=== PATIENT | female | born 1985 | race Caucasian/White ===

== ENCOUNTER → 2019-03-17 08:38 | Outpatient (BNVA) | payer MEDICAID, SELFPAY | PROVIDERS: Family Provider Registered Nurse; Visit Provider Obstetrics & Gynecology | DX: Z34.90 Encounter for supervision of normal pregnancy, unspecified, unspecified trimester (principal) | CPT/HCPCS: 81000; 81003 ==

== ENCOUNTER → 2019-03-31 08:30 | Outpatient (BNVA) | payer MEDICAID, SELFPAY | PROVIDERS: Family Provider Registered Nurse; Visit Provider Obstetrics & Gynecology | DX: Z34.93 Encounter for supervision of normal pregnancy, unspecified, third trimester (principal) | CPT/HCPCS: 81003; 87081 ==

== ENCOUNTER → 2019-04-07 08:10 | Outpatient (BNVA) | payer MEDICAID, SELFPAY | PROVIDERS: Family Provider Registered Nurse; Visit Provider Obstetrics & Gynecology | DX: Z34.93 Encounter for supervision of normal pregnancy, unspecified, third trimester (principal) | CPT/HCPCS: 81003 ==

== ENCOUNTER → 2019-04-14 08:16 | Outpatient (BNVA) | payer MEDICAID, SELFPAY | PROVIDERS: Family Provider Registered Nurse; Visit Provider Obstetrics & Gynecology | DX: Z34.90 Encounter for supervision of normal pregnancy, unspecified, unspecified trimester (principal) | CPT/HCPCS: 81003 ==

== ENCOUNTER → 2019-04-21 08:11 | Outpatient (BNVA) | payer MEDICAID, SELFPAY | PROVIDERS: Family Provider Registered Nurse; Visit Provider Obstetrics & Gynecology | DX: Z34.90 Encounter for supervision of normal pregnancy, unspecified, unspecified trimester (principal) | CPT/HCPCS: 81003 ==

== ENCOUNTER → 2019-04-28 09:46 | Outpatient (BNVA) | payer MEDICAID, SELFPAY | PROVIDERS: Family Provider Registered Nurse; Visit Provider Obstetrics & Gynecology | DX: Z34.90 Encounter for supervision of normal pregnancy, unspecified, unspecified trimester (principal) | CPT/HCPCS: 81003 ==

== ENCOUNTER 2019-05-04 23:08 | Inpatient (IN) | payer MEDICAID, SELFPAY ==
[2019-05-04] VITALS (50 sets, daily range): BP systolic 0–158; BP diastolic 0–98; PULSE 64–102; RESP 18; TEMP 36.7–36.8; BMI 44.6
--- NOTE | 2019-05-04 14:00 | PM.OBGYHP ---
Providers/Chief Complaint Admitting Physician: Lucas Boykin Primary SCALING MACHINE OPERATOR: Will Finney Chief Complaint: ob triage HPI SCALING MACHINE OPERATOR History of Present Illness Laura Ross is a 34 year old female -0-1-0 with LMP of 07/06/2018 EDC of 04/26/2019 based on early ultrasound. Last seen in the office on 04/28/[address] Finney. Arranges were made for patient to be admitted today for induction of labor for pending postdates. Patient presents to labor and delivery today she states she has not had uterine contractions she has good movement denies headaches visual changes right upper quadrant and midepigastric pain. This has been complicated by hypertension in third trimester, however from review of chart patient has had some borderline elevations of blood pressure in . 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 Also has a history of chlamydia in first trimester history of tobacco use and second trimester family history of Down syndrome and obesity affecting (current weight 300 pounds) Blood type O+ [employer] screens negative rubella protected serology testing negative Pap smear negative and up-to-date 1 hour GTT 64NIPT low risk cystic fibrosis screen negative at 28 weeks 1 hour GTT was 122 Present Details : 2 Para: 0 Review of Systems Const: Denies: fever, chills or body aches Eyes: Denies: change in vision Card: Denies: chest pain, palpitations, irregular heart rhythm or swelling of feet/ankles Resp: Denies: shortness of breath, productive cough or wheezing GI: Denies: abdominal pain, nausea or vomiting : Denies: difficulty urinating, painful urination, urinary urgency, vaginal odor or vaginal discharge Musc: Denies: back pain, extremity pain or extremity swelling Skin/Breast: Denies: rash Neuro: Denies: headache, numbness in extremities or weakness in extremities Psych: Denies: anxiety or depression Endo: Denies: excessive urination, excessive thirst, cold intolerance or heat intolerance Abiodun/Lymph: Denies: easy bruising or easy bleeding All/Imm: Denies: hives Medications/Allergies Allergies Allergy/AdvReac Type Severity Reaction Status Date / Time No Known Allergies Allergy Verified 03/03/19 08:11 [facility] SCALING MACHINE OPERATOR Social History (Updated 05/04/19 @ 14:10 by Lucas Boykin DO) Smoking and tobacco status: former smoker Quit status (tobacco): has quit using tobacco Second hand smoke exposure: No Alcohol intake: unknown Desire information about alcohol rehabilitation?: No Counseling given: No Substance/Drug Use: unknown Desire information about substance/drug rehabilitation?: No Counseling given: No Adopted: No Caregiver/support person: No Lives independently: Yes Household members: family service: No Current occupational exposures/hazards: No History of recent travel: No Current gender identity: Female Special anshu needs: No Agree to transfusion: Yes Vitals/I&O/Wt Last Vital Signs Pulse 92 05/04/19 13:58 BP 151/77 05/04/19 13:58 Weight last 48 hrs Weight 145.15 kg Physical Exam Narrative: EXAM NARRATIVE: Alert and oriented no acute distress obese gravid white female HEENT grossly normal Neck supple nontender nodes or masses Lungs clear to auscultation Heart regular sinus rhythm Abdomen obese soft nontender gravid baby is vertex per L&D RN ultrasound and confirmed by Asad's Pelvic exam: Deferred by me cervix described as being long/1 cm by nurse Extremities intact no definite edema Neurologic exam patella DTR 02/22 A&P Assessment and plan (1) with 41 completed weeks gestation: This lady is admitted at 41 weeks gestation for induction of labor. Initial blood pressure today was 157/78 she has been followed closely for increased blood pressure and third trimester her home blood pressures have been in the 130s over 70s. She denies any signs symptoms of preeclampsia at this time will check her CBC with platelets CMP and urine protein creatinine ratio will observe closely for development of preeclampsia and labor. She is a group B strep carrier will be given prophylactic ampicillin per protocol. Have discussed meaning of group B strep and risks to . Status: Acute Code(s): Z3A.41 - 41 weeks gestation of Attestations Medical Necessity Statement*: Labor impending delivery Time Spent in Patient Care: 16 - 35 minutes Greater than 50% of [id number] time spent with counseling patient on labor and group B strep status Procedures Consent Consent for Procedure: Consent obtained from patient Coding Level of Care Code Established Pt Acute Taximeter Repairer for g Fwd Patient Type Established History Expanded Problem Focused Exam Expanded Problem Focused Medical Decision Making Moderate Complexity Diagnoses with 41 completed weeks gestation Z3A.41 Time Spent (min) 30 Comment Greater than 50% [id number]-prkl time spent in counseling labor induction and group B strep status.
[2019-05-04 14:43] LABS: Add Urine Microscopic? NO
[2019-05-04] MEDS: ampicillin 2,000 MG in sodium chloride 0.9% (plus) 50 ML 100 MG IV ×2 (14:49→20:38)
[2019-05-04] MEDS: dextrose 5%-lactated ringers 1,000 ML 125 ML IV (14:50)
[2019-05-04 14:55] LABS: Basophils % 0.3 %; Eosinophils # 0.1 10^3/uL (0.0-0.8); Eosinophils % 1.1 %; Hematocrit 36.5 % (37.0-47.0); Hemoglobin 11.7 g/dL (11.5-15.3); Lymphocytes # 2.5 10^3/uL (0.8-4.8); Lymphocytes % 21.6 %; Mean Corpuscular HGB Conc 32.1 g/dL (30.0-36.0); Mean Corpuscular Hemoglobin 29.8 pg (28.0-34.0); Mean Corpuscular Volume 92.9 fL (81-99); Mean Platelet Volume 9.9 fL (7.4-10.4); Monocytes # 0.6 10^3/uL (0.2-0.9); Monocytes % 5.3 %; Neutrophils # 8.1 10^3/uL (1.8-7.7); Neutrophils % 71.3 %; Nucleated Red Blood Cells % 0 %; Platelet Count 324 10^3/cmm (130-400); Red Blood Count 3.93 10^6/uL (4.1-5.3); Red Cell Distribution Width 12.7 % (12.1-15.1); White Blood Count 11.4 10^3/uL (4.0-10.0)
[2019-05-04 14:57] LABS: Bilirubin Urine Neg (NEGATIVE); Blood Urine Neg (Negative); Glucose Urine UA Norm (Normal); Ketones Urine 1+ (Negative); Leukocyte Esterase Urine Negative (Negative); Nitrate Urine Negative (Negative); Protein Urine Neg (Negative); Urine Appearance Clear (CLEAR); Urine Color Dark Yellow (Yellow); Urobilinogen Urine 1 mg/dL (Negative); pH Urine 6 (5-7)
[2019-05-04] MEDS: miSOPROStol 100 mcg tablet 25 MCG VAGINAL ×2 (15:08→19:13)
[2019-05-04 15:17] LABS: Urine Creatinine 282 mg/dL (28-217)
[2019-05-04 15:18] LABS: Alanine Aminotransferase 17 U/L (0-33); Albumin Level 3.1 g/dL (3.5-5.2); Alkaline Phosphatase 117 IU/L (35-105); Aspartate Amino Transferase 14 U/L (0-32); Blood Urea Nitrogen 13 mg/dL (6-20); Calcium 9.2 mg/dL (8.5-10.5); Carbon Dioxide 26 mmol/L (22-29); Chloride 104 mmol/L (98-107); Globulin 3.3 g/dL (1.3-4.6); Glucose 115 mg/dL (65-115); Osmolality Calculated 283 mOsm/kg (285-295); Sodium 138 mmol/L (136-145); Total Bilirubin 0.2 mg/dL (0.15-1.2); Total Protein 6.4 g/dL (6.6-8.7); Uric Acid 5.2 mg/dL (2.4-5.7)
[2019-05-04 15:26] LABS: UPRO/UCREAT Ratio 0.08 mg/mg CR; Urine Protein Random 22 mg/dL
[2019-05-05] VITALS (148 sets, daily range): BP systolic 0–147; BP diastolic 0–82; PULSE 52–83; RESP 17–18; TEMP 36.6–36.9
[2019-05-05] MEDS: ampicillin 2,000 MG in sodium chloride 0.9% (plus) 50 ML 100 MG IV ×4 (02:52→21:05)
[2019-05-05] MEDS: miSOPROStol 100 mcg tablet 25 MCG VAGINAL (06:16)
[2019-05-05] MEDS: oxytocin 30 UNIT/500 ML BAG IV (10:20)
[2019-05-05] MEDS: acetaminophen 325 mg Tablet 650 MG PO (13:06)
[2019-05-05] MEDS: dextrose 5%-lactated ringers 1,000 ML 125 ML IV (15:51)
--- NOTE | 2019-05-05 22:24 | P.PN_ITS ---
Subjective Subjective: Interval history: Ms. Ross states that she is doing good. She feels a little better after having had something to eat and drink. Her pain is well controlled with the epidural. She has questions about plan of care. She denies any preeclamptic symptoms. Vitals/I&O/Wt Last Vital Signs Temp 97.9 F 05/05/19 20:00 Pulse 60 05/05/19 20:55 Resp 18 05/05/19 20:00 BP 131/77 05/05/19 20:55 05/05/19 05/05/19 05/05/19 06:59 14:59 22:59 Intake Total 112.5 / 942.750 156.167 / 156.167 834.583 / 990.750 Balance 112.5 / 942.750 156.167 / 156.167 834.583 / 990.750 Weight last 48 hrs Weight 320 lb Physical Exam Narrative: EXAM NARRATIVE: Gen.: No acute distress Heart: S1-S2 heard, regular rate and rhythm Lungs: Clear to auscultation bilaterally Abdomen: Soft, fundus firm below umbilicus, gravid Cervix: 1, 50, -4 Legs: No calf tenderness, 1+ pitting pedal edema. EFM: 135, moderate variability, accelerations, no decelerations toco: irregular contractions Data : 05/07/19 21:31 05/04/19 14:30 A&P Additional A&P Information 34-year-old 1 para 0 at term undergoing induction of labor -GBS positive-continue antibiotics -Hypertension-has not needed any antihypertensive medication and blood pressures largely within normal limits -Epidural has been given for pain control -She is not in labor at this time-continue induction with Pitocin at this time. Too high for AROM. -Discussed will do 12 hours of Pitocin at the end of the time do another break and based on her cervical exam will reassess if she needs to have another course of Cytotec or Pitocin. All her questions were answered to her satisfaction and she agrees with the current plan of care. Attestations Medical Necessity Statement*: Patient is undergoing labor and will likely need to stay for a couple more days as she has not yet delivered Coding Level of Care Code Acute Granulating Blender for Yulisa Ca
[2019-05-06] VITALS (74 sets, daily range): BP systolic 0–160; BP diastolic 0–91; PULSE 52–90; RESP 16–20; TEMP 36.7–36.8; O2SAT 88–98
[2019-05-06] MEDS: ampicillin 2,000 MG in sodium chloride 0.9% (plus) 50 ML 100 MG IV ×3 (02:47→17:10)
[2019-05-06] MEDS: dextrose 5%-lactated ringers 1,000 ML 125 ML IV (06:23)
--- NOTE | 2019-05-06 23:33 | P.ANES_ITS ---
Anesthesia Procedures Procedure/Date: 05/06/19 Epidural: Time Out Performed: Yes Consents Signed: Procedure Consent Consent: from patient, risks and benefits reviewed and patient agrees to proceed Lumbar Level: L3-L4 Epidural position: sitting Epidural procedure: sterile prep of area, 1% lidocaine to numb the area (5), 18 g needle, negative f or paresthesia passed, neg for paresthesia, test dose given, 1.5% xylocaine 1:200k epi (5), 0.2% Ropivacaine bolus ml (9), placed PCEA (5cc q10min x 3), no systemic response, sterile dressing applied, L.U.D. no apparent complications and 0.2% Ropiavacaine @ mls/hr (13) Additional Comments: called to OB for pt requesting Epidural, paper preop from 04/07 reviewed and no changes. Labs reviewed and pt epidural completed, catheter to 5cm. Before test dose, pt diaphoretic and bp 97/50. waited and rechecked BP before test dose. it had improved to 100s systolic. nausea subsided. test dose negative and taped. FHR payton and pt repositioned per RNs and Dr Finney to bedside. HR increased with o2 and position change. after settling down epidural bolused over 8 min. VSS throughout and Last BP is 144/73.
[2019-05-07] VITALS (73 sets, daily range): BP systolic 0–157; BP diastolic 0–87; PULSE 53–80; RESP 16–18; TEMP 36.4–37; O2SAT 95–100
[2019-05-07] MEDS: ampicillin 2,000 MG in sodium chloride 0.9% (plus) 50 ML 100 MG IV (01:00)
--- NOTE | 2019-05-07 06:39 | PM.PN ---
Subjective Subjective: Interval history: Patient is a 34-year-old white female 2, para 0-0-1-0 with an LMP of 07/06/2018 and an EDC of 04/26/2019 based on 8-week ultrasound, which places her at 41-4/7 weeks gestation today. She had presented to labor and delivery on 05/03, for Cytotec cervical ripening and induction of labor. She initially received a total of 3 doses of Cytotec 25 mcg vaginally and was then started on Pitocin on Sunday. This was carried through the evening and the next morning. However, she made no significant cervical change and Pitocin was stopped on Sunday, 05/05 to allow patient to have a break. Pitocin was restarted late afternoon on Sunday and has been continued through the night. At approximately 1730 on Sunday, 05/05, artificial rupture membranes was performed with clear fluid. She was at most 50% effaced and 3 to 4 cm dilated and a -4 station with a very anterior, soft cervix. Pitocin was continued through the night. She became more uncomfortable and had epidural placed. Following epidural placement she became vasovagal and baby developed a prolonged deceleration which did resolve after fluid hydration, oxygen, and eventually getting her into a knee chest position. Baby recovered following this and was reassuring. Pitocin was restarted after recovery of the baby and she has been continued on Pitocin through the rest of the night. This morning, patient reports feeling minimal discomfort with her contractions. She denied any lightheadedness or dizziness. Vitals/I&O/Wt Last Vital Signs Temp 97.8 F 05/07/19 05:17 Pulse 72 05/07/19 06:25 Resp 16 05/07/19 01:00 BP 134/79 05/07/19 06:25 Pulse Ox 95 05/06/19 22:59 05/06/19 05/06/19 05/07/19 14:59 22:59 06:59 Intake Total 98.034 / 98.034 53.0 / 151.034 Output Total 250 / 250 Balance 98.034 / 98.034 53.0 / 151.034 -250 / -98.966 Physical Exam Const: COMMON NORMALS: no apparent distress, average body habitus, alert and well nourished GENERAL APPEARANCE: well developed ORIENTATION/CONSCIOUSNESS: Yes oriented to person, Yes oriented to place and Yes oriented to time GI: COMMON NORMALS: soft to palpation, non-tender, no hepatosplenomegaly and no masses (Except for gravid uterus.) AUSCULTATION: Yes normoactive bowel sounds PALPATION: Yes soft, Yes no hepatosplenomegaly and No hernia : EXTERNAL FEMALE EXAM: No hernia OTHER: External genitalia: Normal in appearance with no lesions seen. Normal hair distribution. Anus/perineum: No perineal lesions noted. Urethral meatus: Normal in size and location with no lesions or prolapse noted. Urethra: Nontender with no palpable masses noted. Bladder: Nontender with no palpable masses noted. Vagina: No palpable masses. Cervix: 4 to 5 cm dilated, 80% effaced, soft, mid position. The head itself is at a -4 station still. Large caput present. Cervix is not tight against the had. Neuro: SENSORIUM/ORIENTATION: Yes alert, Yes oriented to person, Yes oriented to place and Yes oriented to time Psych: COMMON NORMALS: affect normal MOOD & AFFECT: Yes euthymic mood Urinary Catheter Management^: Lance: Cath Placed During This Visit: yes Urinary Catheter Date of Insertion: 05/06/19 Urinary Catheter Time of Insertion: 23:45 Data : 05/04/19 14:30 05/04/19 14:30 A&P Assessment and plan (1) Cephalopelvic disproportion: Based upon exam, I feel the most likely have a cephalopelvic disproportion. Baby has not really descended any further into the pelvis through the night. Cervix is also not tight against the head. Baby is not ballotable. Based upon this, I discussed with the patient that she is unlikely to deliver vaginally. I discussed with her that I would recommend section. Risks of were discussed with her including bleeding to the point of needing a blood transfusion, infection, and injury to intra-abdominal organs including bowel, bladder, blood vessels, nerves, and ureters. Recovery following including length of stay afterwards was discussed. Questions were answered. She wishes to proceed with section. She is being prepared for a nonemergent section. Status: Acute Code(s): O33.9 - Maternal care for disproportion, unspecified (2) Group B Streptococcus carrier state affecting : Patient has been on ampicillin for group B strep prophylaxis due to positive GBS carrier status. Status: Acute Code(s): O99.820 - Streptococcus B carrier state complicating (3) Obesity affecting : Patient currently weighs 320 pounds with a BMI of 44.6. Status: Acute Code(s): O99.210 - Obesity complicating , unspecified trimester Attestations Medical Necessity Statement*: Patient has is proceeding to a section. Coding Level of Care Code Acute Radio Frequency Design Engineer for Chg Fwd Diagnoses Cephalopelvic disproportion O33.9 Group B Streptococcus carrier state affecting O99.820 Obesity affecting O99.210
[2019-05-07] MEDS: lactated ringers 1,000 ML 999 ML IV (07:52)
[2019-05-07] MEDS: citric acid-sodium citrate 30 mL UDC PO (08:01)
[2019-05-07] MEDS: famotidine 20 mg/2 mL INJ IVP (08:02)
[2019-05-07] MEDS: metoclopramide 5 mg/mL SDV 2 mL 10 MG IVP (08:02)
--- NOTE | 2019-05-07 09:33 | PM.OP ---
Operative Report Date of procedure: May 07, 2019 Pre-op Diagnosis: 1. Cephalopelvic disproportion, 2. at 41-4/7 weeks gestation, 3. Group B strep carrier status, 4. Obesity complicating Post-op Diagnosis: 1. Cephalopelvic disproportion with large fetus, 2. at 41-4/7 weeks gestation, 3. Group B strep carrier status -delivered, 4. Obesity complicating - delivered, 5. Viable female infant Procedure Done: Primary low transverse section Specimens removed/disposition: None Surgeon: Will Finney Public Records Researcher: None Anesthesia: Epidural Estimated blood loss (mL): 1,000 IV fluids (mL): 1,300 Complications: None Findings: 1. Viable, female , cephalic presentation, weighing 9 lbs 2 oz (4145 g) with a length of 21-1/2 inches and Apgars of 9 at 1 minute and 9 at 5 minutes. 2. Normal appearing uterus, tubes, and ovaries. Brief History: Patient is a 34-year-old white female 2, para 0-0-1-0 with an LMP of 07/06/2018 and an EDC of 04/26/2019 based on an 8-week ultrasound, which places her at 41-4/7 weeks gestation today. She presented to labor and delivery on 05/04/2019 for Cytotec cervical ripening and induction of labor. She received Cytotec Sunday afternoon through Sunday morning. She was started on Pitocin later in the day on Sunday. She was continued on Pitocin through Sunday night and Sunday morning before it was stopped and she was given a break. Pitocin was restarted Sunday afternoon and continued through the night. Artificial rupture membranes had been performed at approximately 730 on Sunday with clear fluid. She became more uncomfortable during the night and had epidural placed. She had progressed to 5 cm dilation but did not progress any further. By the the morning of Sunday, 05/06, decision was made to take her for a section. Procedure: Patient was taken to the operating room where epidural was further dosed. She was prepped and draped in the usual sterile fashion in a dorsal supine position with a leftward tilt. Lance catheter and sequential compression boots had been placed prior to starting the case. A Pfannenstiel skin incision was made with a knife and carried down to the underlying fascia with the knife. Fascia was incised in the midline with the knife and extended laterally with Desai scissors. Superior aspect of the fascia was grasped with Musa clamps, elevated, and sharply and bluntly dissected. The inferior aspect of the fascia was grasped with Musa clamps, elevated, and sharply and bluntly dissected. The rectus muscles were in the midline. Peritoneum was sharply entered. Peritoneal incision was extended both superiorly and inferiorly with good visualization of the bladder. Bladder blade was inserted. The vesicouterine peritoneum was tented up and sharply entered. It was extended laterally and the bladder flap was created digitally. Bladder blade was reinserted. A transverse incision was made with the knife in the lower uterine segment. Clear fluid was obtained upon entry into the uterine cavity. The 's head was not really engaged into the pelvis. he infant's head was delivered and no nuchal cords were noted. Large caput was present. The rest of the infant delivered atraumatically. Nose and mouth were suctioned with bulb suction. Cord was clamped and cut and the infant was handed off to Dr. Henry and the waiting nurses. Cord blood was obtained. Placenta was delivered via uterine massage. Patient received 20 units of Pitocin in the IV fluids. The uterus was exteriorized and cleared of clots and debris. The uterine incision was closed in a running locking fashion using 0 Vicryl suture. The incision was imbricated using 0 Vicryl suture in a horizontal mattress fashion. The incision was inspected and noted to be hemostatic. Posterior cul-de-sac was thoroughly irrigated and cleared of clots and blood. The uterus was returned to the abdomen. The uterine incision was irrigated and noted to be hemostatic. The gutters were cleared of clots and blood. The rectus muscles and peritoneum were reapproximated in the midline using interrupted stitches of 2-0 Vicryl suture. The muscle layer was irrigated and noted to be hemostatic. The fascia was reapproximated using 0 Vicryl suture in a running fashion. The subcutaneous layer was irrigated and brought to hemostasis using electrocautery. It was reapproximated using 3-0 plain suture in an interrupted fashion. Skin was reapproximated using 4-0 Vicryl suture in a subcuticular fashion. Steri-Strips were applied. Patient tolerated the procedures well. Sponge, needle, and instrument counts were correct. DRAINS: Lance catheter POSTOPERATIVE STATUS: The patient was left to recover in satisfactory condition
[2019-05-07] MEDS: dextrose 5%-lactated ringers 1,000 ML 125 ML IV (17:28)
[2019-05-07] MEDS: docusate sodium 100 mg Capsule PO (20:52)
[2019-05-07] MEDS: ferrous sulfate EC 325 mg Tablet PO (20:52)
[2019-05-07 21:38] LABS: Hematocrit 33.5 % (37.0-47.0); Mean Corpuscular HGB Conc 32.8 g/dL (30.0-36.0); Mean Corpuscular Hemoglobin 30.1 pg (28.0-34.0); Mean Corpuscular Volume 91.8 fL (81-99); Mean Platelet Volume 9.6 fL (7.4-10.4); Platelet Count 267 10^3/cmm (130-400); Red Blood Count 3.65 10^6/uL (4.1-5.3); Red Cell Distribution Width 12.7 % (12.1-15.1); White Blood Count 11.8 10^3/uL (4.0-10.0)
[2019-05-08 03:21] VITALS: BP 133/77; PULSE 70; RESP 14; TEMP 36.8; O2SAT 98
[2019-05-08] MEDS: HYDROcodone-acetaminophen 5-325 mg Tablet PO ×2 (03:51→11:23)
--- NOTE | 2019-05-08 07:58 | PM.PN ---
Subjective Subjective: Interval history: Denies any new problems or concerns. Reports tolerating liquids without nausea or vomiting. States her pain has been well controlled. Denies shortness of breath or chest pains. Denies lightheadedness or dizziness with ambulation. Denies problems with urination. Denies passing flatus. Vitals/I&O/Wt Last Vital Signs Temp 98.2 F 05/08/19 03:21 Pulse 70 05/08/19 03:21 Resp 14 05/08/19 03:21 BP 133/77 05/08/19 03:21 Pulse Ox 98 05/08/19 03:21 05/07/19 05/08/19 05/08/19 22:59 06:59 14:59 Intake Total 85 / 2052 Output Total 500 / 1999 1025 / 3025 Balance 353 / 53 -1025 / -972 Physical Exam Const: COMMON NORMALS: no apparent distress, average body habitus, alert and well nourished GENERAL APPEARANCE: well developed ORIENTATION/CONSCIOUSNESS: Yes oriented to person, Yes oriented to place and Yes oriented to time Resp: COMMON NORMALS: normal respiratory effort and clear to auscultation bilaterally AUSCULTATION: clear to auscultation bilaterally Cardio: COMMON NORMALS: regular rate, regular rhythm, no gallops, no murmurs and no rub RATE: regular rate RHYTHM: regular rhythm PERIPHERAL PULSES: posterior tibial pulses present GI: COMMON NORMALS: soft to palpation, no hepatosplenomegaly and no masses (Except for firm uterus approximately 1 cm below the umbilicus.) INSPECTION: Yes incision (Dressing dry.) AUSCULTATION: Yes normoactive bowel sounds PALPATION: Yes soft, Yes tender (Lower abdomen was tender to palpation.), Yes no hepatosplenomegaly and No hernia : EXTERNAL FEMALE EXAM: No hernia Neuro: SENSORIUM/ORIENTATION: Yes alert, Yes oriented to person, Yes oriented to place and Yes oriented to time Psych: COMMON NORMALS: affect normal MOOD & AFFECT: Yes euthymic mood Urinary Catheter Management^: Lance: Cath Placed During This Visit: yes, but has since been removed by the nurse Reason for Continuing Indwelling Catheter: Other Urinary Catheter Date of Insertion: 05/06/19 Urinary Catheter Time of Insertion: 23:45 Date Urinary Catheter Removed: 05/08/19 Time Urinary Catheter Discontinued: 02:00 Data : 05/07/19 21:31 05/04/19 14:30 A&P Assessment and plan (1) Cephalopelvic disproportion due to unusually large fetus: Post operative day 1, status post primary section. Patient doing well overall. Pain has been well controlled Duramorph. Started on oral pain medications. Continue clear liquids until passing flatus. Lance catheter removed yesterday. Encourage ambulation. May shower today. Status: Acute Qualifiers: Fetus number: single or unspecified fetus Qualified Code(s): O33.5XX0 - Maternal care for disproportion due to unusually large fetus, not applicable or unspecified Code(s): O33.5XX0 - Maternal care for disproportion due to unusually large fetus, not applicable or unspecified Attestations Medical Necessity Statement*: Patient is 1 day status post section. She is still not passing flatus. Coding Level of Care Code Acute Academic Services Professional for Chg Fwd Diagnoses Cephalopelvic disproportion due to unusually large fetus O33.5XX0 Fetus number: single or unspecified fetus
[2019-05-08] MEDS: docusate sodium 100 mg Capsule PO ×2 (11:22→18:41)
[2019-05-08] MEDS: prenatal vitamin Capsule 1 CAP PO (11:22)
[2019-05-08 11:30] VITALS: BP 144/81; PULSE 73; RESP 20; TEMP 36.4; O2SAT 96
[2019-05-08 17:40] VITALS: BP 120/76; PULSE 80; TEMP 36.8; O2SAT 96
[2019-05-08 22:45] VITALS: BP 122/76; PULSE 72; RESP 14; TEMP 36.7; O2SAT 96
[2019-05-09] MEDS: HYDROcodone-acetaminophen 5-325 mg Tablet PO (00:52)
[2019-05-09 04:27] VITALS: BP 139/92; PULSE 67; RESP 14; TEMP 36.6; O2SAT 97
--- NOTE | 2019-05-09 08:56 | PM.OBGYDC ---
Discharge Providers INVESTMENT REPRESENTATIVE Date of Admission: 05/04/19 23:08 Date of Discharge: 05/09/19 Attending Provider at Admission: Lucas Boykin DO Attending Provider at Discharge: Lucas Boykin DO Primary INVESTMENT REPRESENTATIVE: Dr. Will Walter Diagnoses at Discharge Discharge Diagnosis (1) Cephalopelvic disproportion due to unusually large fetus: Status: Acute Problem details: Failed induction patient underwent primary low transverse for arrest of dilation productive of LGA baby no complications Qualifiers: Fetus number: single or unspecified fetus Qualified Code(s): O33.5XX0 - Maternal care for disproportion due to unusually large fetus, not applicable or unspecified Reason for Visit Reason for Visit: Reason For Visit: /postoperative day 2 Hospital Course Hospital Course: This 1 para 0 now para 1 was admitted at 41+1 weeks for induction of labor for postdates. At the time of admission she had a very unfavorable cervix underwent nasal Prostko cervical ripening x3. Started on IV Pitocin. Note that she did have some elevation in her blood pressure is early in her labor braga labs were negative for preeclampsia. No signs and symptoms of preeclampsia. Patient did progress however failed to continue to dilate and underwent primary low transverse for arrest productive of an LGA baby. Mother and baby are doing well at this time baby is receiving antibiotics per [place] for 48 to 72 hours. Mother discharge postop day 2 to boarding plan follow-up with us in 2 and 6 weeks. No complication of hospital stay Discharge Summary: See above: Post day 2 patient has no complaints she is up and about denies fevers chills no headaches no visual changes no right upper quadrant and midepigastric pain. Normal voiding normal bowel movements. She denies calf tenderness She denies shortness of breath chest tightness chronic cough Information Peripartum Data: Infant Delivery Method: Section Physical Exam Narrative: EXAM NARRATIVE: Alert and oriented pleasant obese white female up and about. HEENT grossly normal Lungs clear to auscultation Heart regular sinus rhythm Abdomen is soft nontender good bowel sounds incision is clean and dry, intact. Extremities without significant edema calves nontender Neurologic shows normal gait Urinary Catheter Management^: Lance: Cath Placed During This Visit: yes, but has since been removed by the nurse Reason for Continuing Indwelling Catheter: Other Urinary Catheter Date of Insertion: 05/06/19 Urinary Catheter Time of Insertion: 23:45 Date Urinary Catheter Removed: 05/08/19 Time Urinary Catheter Discontinued: 02:00 Discharge Data Vitals: Last Vital Signs Temp 97.9 F 05/09/19 04:27 Pulse 67 05/09/19 04:27 Resp 14 05/09/19 04:27 BP 139/92 05/09/19 04:27 Pulse Ox 97 05/09/19 04:27 Discharge Plan Discharge Patient Disposition: Home, Self-Care Condition: Stable Prescriptions: New acetaminophen 325 mg Tablet 650 mg PO Q6H PRN (Reason: Mild Pain or Temp >100.4) Qty: 60 RF: 0 ibuprofen 800 mg Tablet 800 mg PO TID Qty: 60 RF: 0 hydrocodone-acetaminophen 5-325 mg Tablet 1 - 2 tab PO Q4H PRN (Reason: Moderate To Severe Pain) Qty: 20 RF: 0 docusate sodium 100 mg Capsule 100 mg PO BID Qty: 60 RF: 2 ferrous sulfate 325 mg (65 mg iron) Tablet,Delayed Release (Dr/Ec) 325 mg PO BIDWM Qty: 60 RF: 0 -U 106.5-1 mg Capsule 1 cap PO BREAKFAST Qty: 90 RF: 2 Continued RF: 0 Discharge Orders: Discharge Order (Routine); Ordered 05/09/19 Ordered By: Lucas Boykin Discharge Diet: Regular Discharge Activity: Increase activity as tolerated Activity Restrictions/Additional Instructions: FOLLOW UP WITH dR Walter IN 2 AND 6 WEEKS Discharge Attestations INVESTMENT REPRESENTATIVE Time Spent in Discharge Care*: less than 30 min Specific Discharge Activities: Specific discharge activities: educating patient, discussing with pcp/other providers, documenting/other paperwork and evaluating patient/reviewing data Other discharge activites (optional): Patient quit smoking in second trimester Coding Level of Care Code Acute Recovery Analyst for Chg Fwd Medical Decision Making Moderate Complexity Diagnoses Cephalopelvic disproportion due to unusually large fetus O33.5XX0 Fetus number: single or unspecified fetus Time Spent (min) 30 Comment 30 minutes spent in [id number] discussion and counseling for course
[2019-05-09 09:43] VITALS: BP 126/82; PULSE 77; RESP 17; TEMP 36.6
[2019-05-09] MEDS: prenatal vitamin Capsule 1 CAP PO (09:43)
[2019-05-09] MEDS: ferrous sulfate EC 325 mg Tablet PO (09:43)
[2019-05-09] MEDS: docusate sodium 100 mg Capsule PO (09:44)
[2019-05-09] MEDS: lanolin oint 7 gm 1 APPLIC TOPICAL (09:44)
[2019-05-09 15:00] VITALS: BP 134/79; PULSE 69; RESP 17; TEMP 36.7; O2SAT 98
--- NOTE | 2019-06-17 08:50 | P.PN_ITS ---
Subjective Subjective: Interval history: Date of visit 05/06/2019 Patient is a 34-year-old white female 2, para 0-0-1-0 with an LMP of 07/06/2018 and an EDC of 04/26/2019 based on an 8-week ultrasound, which placed her at 41-3/7 weeks gestation. Patient presented to L&D on Sunday, 05/03, for Cytotec cervical ripening. She received 3 doses of Cytotec 25 mcg vaginally and started on Pitocin on Sunday. She had made minimal change by this morning and Pitocin have been stopped to allow her to rest. Pitocin was restarted in the late afternoon up today. She was without other complaints. Vitals/I&O/Wt Last Vital Signs Pulse 90 05/06/19 14:45 BP 131/66 05/06/19 14:45 Physical Exam Const: COMMON NORMALS: no apparent distress, average body habitus, alert and well nourished GENERAL APPEARANCE: well developed ORIENTATION/CONSCIOUSNESS: Yes oriented to person, Yes oriented to place and Yes oriented to time : OB/EXTERNAL & SPECULUM: external exam normal MANUAL OB EXAM: dilated (3-4), effaced 50%, station (-4) and other (Anterior, soft) Neuro: SENSORIUM/ORIENTATION: Yes alert, Yes oriented to person, Yes oriented to place and Yes oriented to time Psych: COMMON NORMALS: affect normal MOOD & AFFECT: Yes euthymic mood Urinary Catheter Management^: Lance: Cath Placed During This Visit: yes, but has since been removed by the nurse Reason for Continuing Indwelling Catheter: Other Urinary Catheter Date of Insertion: 05/06/19 Urinary Catheter Time of Insertion: 23:45 Date Urinary Catheter Removed: 05/08/19 Time Urinary Catheter Discontinued: 02:00 Data : 05/07/19 21:31 05/04/19 14:30 A&P Assessment and plan (1) with 41 completed weeks gestation: She was noted to be 50% effaced and 3 to 4 cm dilated and a -4 station with an anterior soft cervix. Artificial rupture of membranes was performed at 17:30. She has been continued on Pitocin. Status: Acute (2) Group B Streptococcus carrier state affecting : She is currently on ampicillin for GBS prophylaxis. Status: Acute Attestations Medical Necessity Statement*: Patient's labor is being induced Coding Level of Care Code Acute Elementary Ell Teacher for Chg Fwd Diagnoses with 41 completed weeks gestation [id number].41 Group B Streptococcus carrier state affecting O99.820
== END 2019-05-09 15:00 | disposition home or self-care (01) | DRG 788 ==
LOC: OPOB 05-08 09:13
PROVIDERS: Obstetrics & Gynecology; Admitting Provider Obstetrics & Gynecology Female Pelvic Medicine and Reconstructive Surgery; Family Provider Registered Nurse; Visit Provider Obstetrics & Gynecology Female Pelvic Medicine and Reconstructive Surgery
PROC: 10D00Z1 Extraction of Products of Conception, Low, Open Approach (ICD-10-PCS; CPT 59514; principal; 2019-05-07 08:15)
DX: O48.0 Post-term pregnancy (principal); Z3A.41 41 weeks gestation of pregnancy; Z37.0 Single live birth; O61.0 Failed medical induction of labor; O33.5XX0 Maternal care for disproportion due to unusually large fetus, not applicable or unspecified; O99.214 Obesity complicating childbirth; O99.824 Streptococcus B carrier state complicating childbirth
CPT/HCPCS: 12345; 36415; 51702; 59025; 59409; 80053; 81003; 82570; 84156; 84550; 85025; 85027; 96375; 98960; J0290; J0690; J1885; J2001; J2274; J2405; J2590; J2765; J2795; J3490; J7030

== ENCOUNTER → 2019-06-17 08:53 | Outpatient (BNVA) | payer MEDICAID, SELFPAY | PROVIDERS: Family Provider Registered Nurse; Visit Provider Obstetrics & Gynecology | DX: Z34.90 Encounter for supervision of normal pregnancy, unspecified, unspecified trimester (principal) | CPT/HCPCS: 81000 ==

== ENCOUNTER → 2019-06-30 11:10 | Outpatient (BNVA) | payer MEDICAID, SELFPAY | PROVIDERS: Family Provider Registered Nurse; Visit Provider Obstetrics & Gynecology | DX: Z30.014 Encounter for initial prescription of intrauterine contraceptive device (principal) | CPT/HCPCS: 81025 ==

== ENCOUNTER → 2022-09-19 09:45 | Outpatient (BNVA) | payer SELFPAY | PROVIDERS: Family Provider Registered Nurse; Visit Provider Obstetrics & Gynecology | DX: Z12.4 Encounter for screening for malignant neoplasm of cervix (principal); Z30.9 Encounter for contraceptive management, unspecified | CPT/HCPCS: 87624 ==

== ENCOUNTER → 2023-10-01 08:30 | Outpatient (BNVA) | payer SELFPAY | PROVIDERS: Family Provider Registered Nurse; Visit Provider Obstetrics & Gynecology | DX: Z00.00 Encounter for general adult medical examination without abnormal findings (principal) | CPT/HCPCS: 80053; 80061; 83036; 84443; 85025 ==